=== PATIENT | male | born 1990 | race Hispanic/Latino ===

== ENCOUNTER 2018-09-30 12:42 | Emergency (ER) | payer MEDICAID ==
--- NOTE | 2018-09-30 12:45 | C.PDOC ---
History Of Present Illness 28 yr old male w/ hx of cerebral palsy, unknown last tetanus presents s/p fall from standing height due onto face. Pt notes fall onto face roughly 1 hour prior, no LOC and notes that he slipped due to the curve. No LOC. Ambulated well afterwards, given bleeding on his face however he came to ed for further eval. No pain w/ eye movement. No change in vision. No blood thinner usage. Mild PARIKH. No N/V. No chest pain or Sob. No joint pain. No neck pain. No hx of RA. No GI or complaints. No rashes, fever, chills or night sweats. Has not felt ill recently. No other complaints. Time Seen by Provider: 09/30/18 12:44 Past Medical History Family History: States: Unknown Family Hx Review Of Systems Constitutional: Negative for: Fever, Chills, Weakness, Malaise Eyes: Negative for: Pain, Vision Change, Conjunctivae Inflammation, Eyelid Inflammation, Redness ENT: Negative for: Ear Pain, Ear Discharge, Nose Pain, Nose Discharge, Nose Congestion, Mouth Pain, Mouth Swelling, Throat Swelling Cardiovascular: Negative for: Chest Pain, Palpitations, Orthopnea, Edema, Light Headedness Respiratory: Negative for: Cough, Shortness of Breath, Hemoptysis, SOB with Excertion, Pleuritic Pain, Wheezing Gastrointestinal: Negative for: Nausea, Vomiting, Abdominal Pain, Constipation, Melena, Hematochezia Genitourinary: Negative for: Dysuria, Frequency, Hematuria, Scrotal Pain, Penile Pain Musculoskeletal: Negative for: Neck Pain, Shoulder Pain, Arm Pain, Back Pain, Hand Pain, Leg Pain, Foot Pain Skin: Positive for: Bruising (L face). Negative for: Rash Neurological: Positive for: Headache (mild, after fall). Negative for: Weakness, Numbness, Incoordination, Change in Speech, Altered Mental Status, Dizziness Psych: Negative for: Anxiety Physical Exam - Physical Exam Appears: Well, Non-toxic, No Acute Distress Skin: Normal Color, Warm Head: Tenderness, Abrasion, Other (multiple abrasions to L forehead and L maxilla, mildly bleeding. ) Eye(s): bilateral: Normal Inspection, PERRL, EOMI Ear(s): Bilateral: Normal, Other (No TM abnl) Nose: No Epistaxis, No Septal Hematoma, Other (contusion) Oral Mucosa: Moist Tongue: Normal Appearing Lips: Swelling (over L lip), Contusion (L lip, superior), No Laceration Teeth: No Tender To Palpation Gingiva: Normal Appearing, No Erythema, No Ulceration, No Swelling, No Tender, No Bleeding Throat: Normal, No Erythema, No Exudate, No Drooling Neck: Normal, Normal ROM, Trachea Midline, No Midline Cervical Tenderness, No Paracervical Tenderness, Supple Chest: Symmetrical, No Deformity Cardiovascular: Rhythm Regular Respiratory: Normal Breath Sounds, No Decreased Breath Sounds, No Accessory Muscle Use, No Stridor, No Wheezing Gastrointestinal/Abdominal: Normal Exam, No Tenderness Back: Normal Inspection, No CVA Tenderness, No Vertebral Tenderness, No Decreased ROM, No Muscle Spasm, No Paraspinal Tenderness Extremity: Normal ROM, No Tenderness, No Pedal Edema, No Calf Tenderness, No Swelling Extremity: Bilateral: Atraumatic, Hips Non-Tender, No Pedal Edema, Normal Color And Temperature, Normal ROM, Pelvis-Stable Pulses: Left Radial: Normal, Right Radial: Normal, Left Dorsalis Pedis: Normal, Right Dorsalis Pedis: Normal Neurological/Psych: Oriented x3, Normal Speech, Normal Cognition, No Cerebellar Signs, Normal Motor Gait: Steady Extremity: Right: No Drift, Left: No Drift, Upper: No Drift, Lower: No Drift Medical Decision Making Medical Decision Makin yr old w/ hx of Cerebral palsy male p/w mechanical fall earlier today. Tetanus UTD. Abrasions noted to L face. No septal hematoma. C spine cleared via NEXUS. Will seek imaging. Pt notes he does not want pain meds at this time Pending CT, Tetanus CT head w/o contrast IMPRESSION: No acute intracranial pathology identified. Left scalp hematoma and preseptal swelling. CT maxillofacial w/o contrast IMPRESSION: No acute nasal bone, orbital or maxillofacial fracture. Moderate left frontal scalp and supraorbital soft tissue hematoma. 1603 cts unremarkable tetanus given pain improved. Pt in NAD no lacs noted Wounds cleaned and dressed walking well repeat neuro exam unremarkable given return indications and followup. pt agreeable Disposition - Disposition Disposition: HOME/ ROUTINE Disposition Time: 16:03 Condition: GOOD Forms: [employer] (Kinyarwanda) - Clinical Impression Clinical Impression: Fall, Facial abrasion
[2018-09-30 12:50] VITALS: TEMP 97.3
[2018-09-30] MEDS ORDERED: Tdap Vaccine 0.5 ml Vial (10-64 yrs) IM ONE (13:40)
[2018-09-30] MEDS ORDERED: Tetanus/Diphtheria Toxoids 0.5 ml Syringe IM ONE (14:01)
--- NOTE | 2018-09-30 15:16 | CT ---
Date of service: 09/30/2018 PROCEDURE: CT HEAD WITHOUT CONTRAST. HISTORY: fall COMPARISON: None available. TECHNIQUE: Axial computed tomography images were obtained through the head/brain without intravenous contrast. Radiation dose: Total exam DLP = 1134.87 mGy-cm. This CT exam was performed using one or more of the following dose reduction techniques: Automated exposure control, adjustment of the mA and/or kV according to patient size, and/or use of iterative reconstruction technique. FINDINGS: HEMORRHAGE: No intracranial hemorrhage. BRAIN: No mass effect or edema. No atrophy or chronic microvascular ischemic changes. VENTRICLES: No hydrocephalus. CALVARIUM: Unremarkable. PARANASAL SINUSES: Unremarkable as visualized. No significant inflammatory changes. MASTOID AIR CELLS: Unremarkable as visualized. No inflammatory changes. OTHER FINDINGS: Left frontal scalp hematoma. Left preseptal swelling. IMPRESSION: No acute intracranial pathology identified. Left scalp hematoma and preseptal swelling.
--- NOTE | 2018-09-30 15:29 | CT ---
Date of service: 09/30/2018 PROCEDURE: CT MAXILLOFACIAL BONES WITHOUT CONTRAST HISTORY: fall, abrasions to L face COMPARISON: None available. TECHNIQUE: Contiguous axial CT images of the maxillofacial bones were obtained. Coronal and sagittal reformats were generated. Radiation dose: Total exam DLP = 797.39 mGy-cm. This CT exam was performed using one or more of the following dose reduction techniques: Automated exposure control, adjustment of the mA and/or kV according to patient size, and/or use of iterative reconstruction technique. FINDINGS: NASAL BONES: No acute fracture. ORBITS: No acute orbital fracture. The globes are symmetric. No intra bulbar or retro bulbar hemorrhage. There is moderate left supraorbital soft tissue hematoma. PARANASAL SINUSES/ MASTOIDS: Well developed and well aerated. MAXILLA: No acute maxillofacial fracture. MANDIBLE/ TEMPOROMANDIBULAR JOINTS: No acute fracture or dislocation. SKULL BASE: Unremarkable. TEMPORAL BONES: Middle ears and mastoid grossly unremarkable. OTHER FINDINGS: There is moderate left frontal scalp hematoma. There is mild left periorbital and facial soft tissue swelling. IMPRESSION: No acute nasal bone, orbital or maxillofacial fracture. Moderate left frontal scalp and supraorbital soft tissue hematoma.
[2018-09-30] MEDS ORDERED: Bacitracin 500 Units/gm Oint Foilpak UD ONE (15:51)
[2018-09-30 16:23] VITALS: BP 128/84; PULSE 86; RESP 19; O2SAT 95
== END 2018-09-30 16:23 | disposition home or self-care (01) ==
LOC: C.ER 12:42
DX: S00.81XA Abrasion of other part of head, initial encounter (principal); W18.30XA Fall on same level, unspecified, initial encounter; G80.9 Cerebral palsy, unspecified; Z23 Encounter for immunization